=== PATIENT | female | born 1940 | race Caucasian/White ===

== ENCOUNTER 2019-08-01 11:32 | Emergency (ER) | payer MEDICARE, OTHER ==
[~2019-08-01] VITALS: Ht 149.9 cm; Wt 79.5 kg
[2019-08-01] MEDS ORDERED: CHOLESTEROL MED PEG (11:57)
[2019-08-01] MEDS ORDERED: HYPERTENSION PO (11:57)
[2019-08-01] MEDS ORDERED: LEVO25TA9 PO (11:58)
[2019-08-01] MEDS ORDERED: ACETAMINOPHEN 500 MG TABLET PO ONE (13:45)
[2019-08-01] MEDS ORDERED: LEVO75 PO (13:47)
[2019-08-01 13:59] VITALS: BP 131/68
== END 2019-08-01 14:03 | disposition home or self-care (01) ==
LOC: EMS 11:33
DX: S86.811A Strain of other muscle(s) and tendon(s) at lower leg level, right leg, initial encounter (principal); M13.861 Other specified arthritis, right knee; R00.1 Bradycardia, unspecified; E78.00 Pure hypercholesterolemia, unspecified; E03.9 Hypothyroidism, unspecified; I10 Essential (primary) hypertension; Z98.890 Other specified postprocedural states; Z79.899 Other long term (current) drug therapy; X50.9XXA Other and unspecified overexertion or strenuous movements or postures, initial encounter; Y93.89 Activity, other specified; Y92.89 Other specified places as the place of occurrence of the external cause; Y99.8 Other external cause status
CPT/HCPCS: 29505; 93005

== ENCOUNTER → 2019-11-11 | Outpatient (CLI) | payer MEDICARE, OTHER ==
[~2019-11-11] MED LIST: CHOLESTEROL MED PEG; HYPERTENSION PO; LEVO75 PO
== END | disposition home or self-care (01) ==
LOC: RADPV 10:01
PROVIDERS: ATTEND Hospitalist
DX: R60.0 Localized edema (principal)
CPT/HCPCS: 93970